=== PATIENT | male | born 1980 | race Native Hawaiian/Other Pacific Islander ===

== ENCOUNTER → 2019-08-16 14:46 | Outpatient (CLI) | payer OTHER, MEDICAID, SELFPAY | PROVIDERS: Family Provider Family Medicine; PCP Family Medicine; Visit Provider Physician Assistant | DX: L02.01 Cutaneous abscess of face (principal) | CPT/HCPCS: 87070; 87075; 87077; 87186; 87205 ==

== ENCOUNTER → 2020-08-22 10:02 | Outpatient (CLI) | payer OTHER, MEDICAID, SELFPAY ==
[2020-08-22] MEDS: COVID-19 VACC, Ad26(JANSSEN)/PF 0.5 ML IM (10:14)
== END ==
PROVIDERS: Family Provider Family Medicine; PCP Family Medicine; Visit Provider Internal Medicine
DX: Z23 Encounter for immunization (principal)
CPT/HCPCS: 0031A; 91303

== ENCOUNTER → 2020-12-08 12:30 | Outpatient (CLI) | payer OTHER, MEDICAID, SELFPAY ==
--- NOTE | 2020-12-08 | DI.RAD.S_ITS ---
PROCEDURE: XR KNEE LT 3V INDICATIONS: LEFT KNEE PAIN TECHNIQUE: 3 views of the knee were acquired. COMPARISON: [facility] [place], [place], BILATERAL KNEE MIN 4VW, 01/18/2014, 11:20. FINDINGS: Bones: No fractures or dislocations. No suspicious bony lesions. Soft tissues: No joint effusion. No suspicious soft tissue calcifications. Chondrocalcinosis present. IMPRESSION: Chondrocalcinosis. Differential diagnosis includes but is not limited to hemochromatosis, hyperparathyroidism and CPPD. Dictated by: Luis Foley [facility] Interpreted: Nikhil Estrella MD on 12/08/2020 at 13:37 Transcribed by: FLORIAN on 12/08/2020 at 13:38 Approved by: Nikhil Estrella M.D. on 12/08/2020 at 16:51
== END ==
PROVIDERS: Family Provider Family Medicine; PCP Family Medicine; Referring Provider Family Medicine; Visit Provider Family Medicine
DX: M25.562 Pain in left knee (principal); M11.262 Other chondrocalcinosis, left knee
CPT/HCPCS: 73562

== ENCOUNTER → 2021-02-13 13:39 | Outpatient (CLI) | payer OTHER, MEDICAID, SELFPAY ==
--- NOTE | 2021-02-13 13:40 | DI.RAD.S_ITS ---
PROCEDURE: XR HIP W PEL IF DONE RT 2V INDICATIONS: right hip pain TECHNIQUE: 2 views of the hip were acquired. COMPARISON: None. FINDINGS: Bones: No fractures or dislocations. No suspicious bony lesions. The visualized pelvic ring appears intact. Soft tissues: No suspicious soft tissue calcifications or masses. IMPRESSION: Normal pelvis and right hip radiographs Approved by: Fazal Jacobs M.D. on 02/13/2021 at 13:26
== END ==
PROVIDERS: Family Provider Family Medicine; PCP Family Medicine; Referring Provider Physician Assistant; Visit Provider Physician Assistant
DX: M25.551 Pain in right hip (principal)
CPT/HCPCS: 73502

== ENCOUNTER → 2021-03-05 09:51 | Outpatient (CLI) | payer OTHER, MEDICAID, SELFPAY ==
--- NOTE | 2021-03-05 | DI.MRI.S_ITS ---
PROCEDURE: MR KNEE LT WO/W CON INDICATIONS: LEFT KNEE PAIN TECHNIQUE: Noncontrast sagittal PD fast spin echo and T2 fast spin echo with fat saturation, sagittal 3-D FLASH with fat saturation; coronal T1 spin echo and PD fast spin echo with fat saturation, and axial T1 spin echo and PD fast spin echo with fat saturation through the knee. Post-contrast axial, coronal, and sagittal T1 spin echo with fat saturation through the knee. COMPARISON: [facility], CR, XR KNEE LT 3V, 12/08/2020, 12:39. FINDINGS: Image quality: Excellent. Menisci: There is horizontal oblique tearing of the posterior horn of the medial meniscus extending to the inner third of the tibial articular surface. The lateral meniscus is intact. There is no meniscal extrusion. Cruciate ligaments: The anterior and posterior cruciate ligaments appear intact. Medial structures: The medial collateral ligament appears intact. The semimembranosus tendon insertions and meniscocapsular junction appear intact. Visualized portions of the pes anserinus tendons appear normal. No abnormal bursal fluid. Lateral structures: The lateral collateral ligament, long and short heads of the biceps femoris tendon appear intact. The popliteus tendon appears intact. No signs of posterolateral corner injury. Iliotibial band appears normal. Anterior structures: There is mild patella collin. The distal quadriceps tendon is intact. No significant femoral trochlear dysplasia or ventral trochlear prominence. Mild edema is seen at the superolateral aspect of Hoffa's fat pad, which is nonspecific but can be seen in the setting of lateral femoral condyle-patellar tendon friction syndrome. Bones and cartilage: No suspicious osseous enhancement. No bone marrow contusions or fractures. There is low-grade cartilage irregularity in the posterior weight-bearing portion of the medial femoral condyle. The lateral compartment articular cartilages are maintained. There is low-grade partial-thickness cartilage irregularity of the median ridge of the patella and the trochlear groove. Joint space: There is a small joint effusion. A trace medial popliteal cyst is present. No suspicious enhancing soft tissue mass is seen. IMPRESSION: 1. Horizontal oblique tear of the posterior horn of the medial meniscus extending to the inner third of the tibial articular surface. 2. Mild patella collin. Mild edema at the superolateral aspect of Hoffa's fat pad can be seen in the setting of lateral femoral condyle-patellar tendon friction syndrome. 3. Mild grade 2 chondromalacia in the medial and anterior compartments. 4. Small joint effusion. Dictated by: Meño Rogers M.D. on 03/05/2021 at 10:52 Approved by: Meño Rogers M.D. on 03/05/2021 at 11:01
== END ==
PROVIDERS: Family Provider Family Medicine; PCP Family Medicine; Referring Provider Family Medicine; Visit Provider Family Medicine
DX: M25.562 Pain in left knee (principal); S83.242A Other tear of medial meniscus, current injury, left knee, initial encounter; M94.262 Chondromalacia, left knee; M25.462 Effusion, left knee
CPT/HCPCS: 73723